=== PATIENT | female | born 1985 | race Caucasian/White ===

== ENCOUNTER 2016-08-18 15:40 | Observation (INO) | payer MEDICAID ==
[2016-08-21] MEDS ORDERED: PREN-96 PO (03:28)
== END 2016-08-18 16:40 | disposition home or self-care (01) | DRG 566 ==
LOC: LDRP 15:40
PROVIDERS: ADMIT Specialist; ATTEND Specialist
DX: O26.893 Other specified pregnancy related conditions, third trimester (principal); Z3A.39 39 weeks gestation of pregnancy
CPT/HCPCS: 59025; 81002; G0378